=== PATIENT | male | born 1940 | race Caucasian/White ===

== ENCOUNTER 2018-02-13 12:46 | Day surgery (SDC) | payer MEDICARE, OTHER ==
[~2018-02-13] VITALS: Ht 175.3 cm; Wt 80.9 kg
[~2018-02-13 12:46] MED LIST: GABA300 PO; GUAI600T33 PO; HYDMOR2 PO; NORT25 PO; OXYC10ER PO; OXYC5 PO; POLY17UD PO; PSEU120ER PO
[2018-02-13] MEDS ORDERED: Melatonin1 MG/4 ML (13:45)
== END 2018-02-13 15:25 | disposition home or self-care (01) ==
LOC: ORSCSDS 12:46
PROVIDERS: Surgery
PROC: 0DJD8ZZ Inspection of Lower Intestinal Tract, Via Natural or Artificial Opening Endoscopic (ICD-10-PCS; principal; 2018-02-13 14:30)
DX: Z12.11 Encounter for screening for malignant neoplasm of colon (principal); K57.30 Diverticulosis of large intestine without perforation or abscess without bleeding; K64.8 Other hemorrhoids

== ENCOUNTER 2020-01-04 12:57 | Observation (INO) | payer MEDICARE, OTHER ==
[~2020-01-04] VITALS: Ht 175.3 cm; Wt 76.6 kg
[~2020-01-04 12:57] MED LIST changes: -Donnatal E16.2 MG/5 PO; -NITR.4SL SL; -Nortriptyline H50 MG PO; -OMEP20ER PO
[2020-01-04] MEDS ORDERED: Nortriptyline H50 MG PO (14:04)
[2020-01-04 14:16] LABS: Hematocrit 44.1 % (37.0-53.0); Hemoglobin 14.7 g/dL (13.5-17.5); Mean Corpuscular HGB 32.5 pg (26.0-34.0); Mean Corpuscular HGB Conc 33.3 g/dL (31.5-36.5); Mean Corpuscular Volume 97 fL (80-100); Mean Platelet Volume 9.8 fL (9.1-12.4); Platelet Count 178 K/mm3 (150-400); RDW Coefficient Variation 12.1 % (11.7-14.2); RDW Standard Deviation 43.8 fL (35.1-46.3); Red Blood Cell Count 4.53 M/mm3 (4.30-5.90); White Blood Cell Count 8.69 K/mm3 (4.00-11.30)
[2020-01-04 14:36] LABS: Alanine Aminotransfer (ALT/SGP 28 U/L (12-78); Albumin, Blood 3.7 g/dL (3.4-5.0); Albumin/Globulin Ratio 1.1 (0.8-1.8); Alk Phos 71 U/L (50-136); Anion Gap 9 mmol/L (6-16); Aspartate Aminotrans (AST/SGOT 32 U/L (12-37); Bilirubin, Total 0.7 mg/dL (0.1-1.0); Blood Urea Nitrogen 22 mg/dL (8-24); Bun/Creatinine Ratio 23.4 (12.0-20.0); CO2, Blood 22 mmol/L (21-32); Calcium, Blood 8.6 mg/dL (8.5-10.1); Chloride, Blood 107 mmol/L (98-108); Cholesterol 126 mg/dL (50-200); Creatinine, Blood 0.94 mg/dL (0.60-1.20); Globulin, Blood 3.5 g/dL (2.2-4.0); Glomerular Filtration Rate >60 (60-); Glucose, Blood 84 mg/dL (70-99); HDL Cholesterol 62 mg/dL (>39); LDL/HDL RATIO 0.9; Low Density Lipoprotein Chol 54 mg/dL (0-110); Magnesium, Blood 2.7 mg/dL (1.6-2.4); Potassium, Blood 4.6 mmol/L (3.5-5.5); Sodium, Blood 138 mmol/L (136-145); Total Protein, Blood 7.2 g/dL (6.4-8.2); Triglycerides 50 mg/dL (30-160); Troponin I <0.015 ng/mL (0.000-0.040); Very Low Density Lipoprot Chol 10 mg/dL (6-32)
--- NOTE | 2020-01-04 15:48 | NUR ---
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 BEDSIDE REPORT FROM LISANDRO GORDON. TR BAND TO RIGHT RADIAL ACCESS SITE c 8 ML OF AIR. APPROX 4 CM OF SWELLING NOTED PROXIMAL TO TR BAND, 2ND BAND PLACED c 10 ML OF AIR PLACED PROXIMAL TO FIRST BAND AND 2 ML OF AIR ADDED TO 1ST BAND BY ROENTGENOLOGIST. CAP REFILL <2 SEC, PT DENIES PAIN, NUMBNESS OR TINGLING. PT A&OX 4. ANSWERS QUESTIONS APPROPRIATELY. REPORTS "FULLNESS" IN THROAT, SAME STARTED YESTERDAY AFTERNOON. DENIES CHEST PAIN, SOB OR OTHER SYMPTOMS. LUNGS CLEAR. PT P/W/D. ABD ROUND, SOFT, NON TENDER. BT X 4. MAEW. ORIENTED TO ROOM. ABLE TO MAKE NEEDS KNOWN. VSS.
--- NOTE | 2020-01-04 17:00 | NUR ---
Echocardiogram completed.
--- NOTE | 2020-01-04 18:10 | NUR ---
SHIFT SUMMARY PT ARRIVED FROM [facility]OB[facility] MARKER AT 1450. RADIAL ACCESS, TWO TR BANDS IN PLACE. AIR REMOVED. BANDS LEFT IN PLACE. SWELLING MARKED c PEN. CT SCAN COMPLETE, ECHO COMPLETE. PT REPORTS CONTINUED PAIN TO EPIGASTRIC AREA, MEDICATED c TYLENOL. SO UPDATED. VSS. WILL CONTINUE TO MONITOR UNTIL REPORT TO ONCOMING NURSE.
--- NOTE | 2020-01-04 21:05 | NUR ---
01/03 @ 2100 PRESENTED PATIENT WITH ORDERED EVENING MEDICATIONS, PT. STATES HE NORMALLY TAKES 300 MG GABAPENTIN IN AM, 600 MG IN PM, DOES NOT TAKE 300 MG TID. SPOKE WITH CONOR TAYLOR, GAVE ORDER TO RESUME NORMAL HOME SCHEDULE AND DOSAGE. DECIDED TO PLACE A ONE TIME ORDER FOR 300 MG TONIGHT I HAVE ALREADY PULLED ONE PILL FOR PATIENT. PERTINENT LABS REVEIEWED. NO C/O PAIN. WILL CONTINUE TO MONITOR.
[2020-01-05 03:29] LABS: BASOPHILS ABSOLUTE AUTO 0.03 K/mm3 (0.00-0.23); BASOPHILS PERCENT AUTO 0 % (0-2); EOSINOPHILS ABSOLUTE AUTO 0.18 K/mm3 (0.00-0.68); EOSINOPHILS PERCENT AUTO 2 % (0-6); Hemoglobin 14.2 g/dL (13.5-17.5); IMMATURE GRAN ABSOLUTE AUTO 0.02 K/mm3 (0.00-0.10); IMMATURE GRAN PERCENT AUTO 0 % (0-1); LYMPHOCYTES ABSOLUTE AUTO 0.49 K/mm3 (0.84-5.20); LYMPHOCYTES PERCENT AUTO 6 % (21-46); MONOCYTES ABSOLUTE AUTO 0.85 K/mm3 (0.16-1.47); MONOCYTES PERCENT AUTO 11 % (4-13); Mean Corpuscular HGB 32.7 pg (26.0-34.0); Mean Corpuscular HGB Conc 33.8 g/dL (31.5-36.5); Mean Corpuscular Volume 97 fL (80-100); Mean Platelet Volume 9.6 fL (9.1-12.4); NEUTROPHILS ABSOLUTE AUTO 6.41 K/mm3 (1.96-9.15); NEUTROPHILS PERCENT AUTO 80 % (41-73); Platelet Count 158 K/mm3 (150-400); RDW Coefficient Variation 12.5 % (11.7-14.2); RDW Standard Deviation 44.6 fL (35.1-46.3); Red Blood Cell Count 4.34 M/mm3 (4.30-5.90); White Blood Cell Count 7.98 K/mm3 (4.00-11.30)
[2020-01-05 03:53] LABS: Anion Gap 6 mmol/L (6-16); Blood Urea Nitrogen 17 mg/dL (8-24); Bun/Creatinine Ratio 20.8 (12.0-20.0); CO2, Blood 24 mmol/L (21-32); CPK Creatine Kinase 59 U/L (39-308); Calcium, Blood 8.3 mg/dL (8.5-10.1); Chloride, Blood 108 mmol/L (98-108); Creatine Kinase MB 1.7 ng/mL (0.0-3.6); Creatine Kinase MB Index 2.9 (0.0-4.0); Creatinine, Blood 0.82 mg/dL (0.60-1.20); Glomerular Filtration Rate >60 (60-); Glucose, Blood 117 mg/dL (70-99); Potassium, Blood 4.4 mmol/L (3.5-5.5); Sodium, Blood 138 mmol/L (136-145); Troponin I <0.015 ng/mL (0.000-0.040)
--- NOTE | 2020-01-05 06:41 | NUR ---
SHIFT SUMMARY PATIENT SLEPT WELL THROUGH NIGHT. DID HAVE ONE EPISODE OF EPIGASTRIC/SUBSTERNAL PAIN, RATED 5/10, TREATED WITH TYLENOL AND MAALOX, SEE EMAR, WELL CONTROLLED. PATIENT SLEPT REST OF NIGHT AFTER RECEIVING MEDS, NO FURTHER C/O PAIN. STILL EXHIBITS ST ELEVATION IN LEADS ii, aVF, DEPRESSION IN V1. ASSESSMENT IS CHARTED. VSS. WILL CONTINUE TO MONITOR.
--- NOTE | 2020-01-05 09:35 | NUR ---
ASSUMED CARE OF PT AT 0700. REPORT FROM JONAH GORDON. PT RESTING IN BED. A&OX 4. DENIES CHEST PAIN OR SOB. PT STATES HE IS EAGER TO GO HOME. LUNGS CLEAR. VSS. ST ELEVATION NOTED ON MONITOR. PT STATES GI COCKTAIL LAST NOC HELPED c PAIN. RIGHT RADIAL ACCESS SITE c TEGADERM IN PLACE. CAP REFILL < 3 SEC, PT DENIES NUMBNESS OR TINGLING. ARM BOARD PLACED AT START OF SHIFT. WILL CONTINUE TO MONITOR.
[2020-01-05] MEDS ORDERED: NITR.4SL SL (11:35)
[2020-01-05] MEDS ORDERED: Donnatal E16.2 MG/5 PO (11:35)
[2020-01-05] MEDS ORDERED: OMEP20ER PO (11:36)
--- NOTE | 2020-01-05 13:15 | NUR ---
D/C INSTRUCTIONS PROVIDED. PT VERBALIZED UNDERSTANDING OF D/C INSTRUCTIONS, NEW RX'S AND FOLLOW UP APPTS. AMB OTD NAD. ALL BELONGINGS HOME c PT.
== END 2020-01-05 13:11 | disposition home or self-care (01) ==
LOC: ER 12:57 → ICUW 13:58 → ER 13:58 → ICUE 14:49 → ICUW 14:49 → ICUE 17:18 → ICUW 01-05 12:03 → ICUE 01-05 12:03 → ICUW 01-05 12:40
PROVIDERS: Emergency Medicine; ADMIT Internal Medicine Interventional Cardiology
PROC: B2151ZZ Fluoroscopy of Left Heart using Low Osmolar Contrast (ICD-10-PCS; principal; 2020-01-04)
PROC: 4A023N7 Measurement of Cardiac Sampling and Pressure, Left Heart, Percutaneous Approach (ICD-10-PCS; principal; 2020-01-04)
PROC: B2111ZZ Fluoroscopy of Multiple Coronary Arteries using Low Osmolar Contrast (ICD-10-PCS; principal; 2020-01-04)
DX: I21.19 ST elevation (STEMI) myocardial infarction involving other coronary artery of inferior wall (principal); R09.1 Pleurisy; I25.10 Atherosclerotic heart disease of native coronary artery without angina pectoris; I10 Essential (primary) hypertension; E78.5 Hyperlipidemia, unspecified; K27.9 Peptic ulcer, site unspecified, unspecified as acute or chronic, without hemorrhage or perforation; Z79.899 Other long term (current) drug therapy; Z88.8 Allergy status to other drugs, medicaments and biological substances
CPT/HCPCS: 36415; 71260; 76937; 80048; 80053; 80061; 82550; 82553; 83735; 84484; 85025; 85027; 85347; 86850; 86900; 86901; 93005; 93010; 93306; 93458; 96374; 99152; 99153; 99285-25; A9270; A9270-GY; C1769; C1887; C1894; J1644; J2250; J3010; J7030; Q9967

== ENCOUNTER → 2020-01-04 | Outpatient (CLI) | payer MEDICARE ==
[~2020-01-04] MED LIST changes: +Donnatal E16.2 MG/5 PO; +Melatonin1 MG/4 ML; +NITR.4SL SL; +Nortriptyline H50 MG PO; +OMEP20ER PO
[2020-01-04 11:52] LABS: BASOPHILS ABSOLUTE AUTO 0.03 K/mm3 (0.00-0.23); BASOPHILS PERCENT AUTO 0 % (0-2); EOSINOPHILS ABSOLUTE AUTO 0.03 K/mm3 (0.00-0.68); EOSINOPHILS PERCENT AUTO 0 % (0-6); Hematocrit 43.1 % (37.0-53.0); Hemoglobin 14.9 g/dL (13.5-17.5); IMMATURE GRAN ABSOLUTE AUTO 0.03 K/mm3 (0.00-0.10); IMMATURE GRAN PERCENT AUTO 0 % (0-1); LYMPHOCYTES ABSOLUTE AUTO 0.54 K/mm3 (0.84-5.20); LYMPHOCYTES PERCENT AUTO 6 % (21-46); MONOCYTES ABSOLUTE AUTO 1.11 K/mm3 (0.16-1.47); MONOCYTES PERCENT AUTO 12 % (4-13); Mean Corpuscular HGB Conc 34.6 g/dL (31.5-36.5); Mean Corpuscular Volume 96 fL (80-100); Mean Platelet Volume 9.6 fL (9.1-12.4); NEUTROPHILS PERCENT AUTO 81 % (41-73); Platelet Count 188 K/mm3 (150-400); RDW Coefficient Variation 12.4 % (11.7-14.2); RDW Standard Deviation 44.1 fL (35.1-46.3); Red Blood Cell Count 4.51 M/mm3 (4.30-5.90); White Blood Cell Count 9.14 K/mm3 (4.00-11.30)
[2020-01-04 12:21] LABS: Alanine Aminotransfer (ALT/SGP 26 U/L (12-78); Albumin, Blood 4.1 g/dL (3.4-5.0); Albumin/Globulin Ratio 1.2 (0.8-1.8); Alk Phos 80 U/L (40-126); Anion Gap 10 mmol/L (6-16); Aspartate Aminotrans (AST/SGOT 19 U/L (12-37); Bilirubin, Total 0.5 mg/dL (0.1-1.0); Blood Urea Nitrogen 22 mg/dL (8-24); Bun/Creatinine Ratio 18.6 (12.0-20.0); CO2, Blood 25 mmol/L (21-32); CPK Creatine Kinase 85 U/L (39-308); Calcium, Blood 8.8 mg/dL (8.5-10.1); Chloride, Blood 105 mmol/L (98-108); Creatinine, Blood 1.18 mg/dL (0.60-1.20); Globulin, Blood 3.3 g/dL (2.2-4.0); Glomerular Filtration Rate 60 (60-); Glucose, Blood 105 mg/dL (70-99); Potassium, Blood 4.3 mmol/L (3.5-5.5); Sodium, Blood 140 mmol/L (136-145); Thyroid Stimulating Hormone 1.956 uIU/mL (0.360-4.800); Total Protein, Blood 7.4 g/dL (6.4-8.2)
[2020-01-04 12:27] LABS: Troponin I <0.017 ng/mL (0.000-0.040)
== END | disposition home or self-care (01) ==
LOC: LAB SHORT 11:44 → LAB EV 11:44
PROVIDERS: Physician Assistant
DX: R07.81 Pleurodynia (principal); R53.83 Other fatigue
CPT/HCPCS: 80053; 82550; 83690; 84443; 84484; 85025; 85379

== ENCOUNTER → 2020-11-17 | Outpatient (CLI) | payer MEDICARE, OTHER ==
[~2020-11-17] MED LIST changes: +Donnatal E16.2 MG/5 PO; +NITR.4SL SL; +Nortriptyline H50 MG PO; +OMEP20ER PO
== END | disposition home or self-care (01) ==
LOC: LAB 09:09 → LAB SHORT 09:09
DX: R35.0 Frequency of micturition (principal)
CPT/HCPCS: 87077; 87086; 87186

== ENCOUNTER → 2021-03-31 | Outpatient (CLI) | payer MEDICARE, OTHER | END | disposition home or self-care (01) | LOC: LAB SHORT 19:06 → LAB EV 19:06 | DX: R31.9 Hematuria, unspecified (principal) | CPT/HCPCS: 87077; 87086; 87186 ==

== ENCOUNTER → 2021-06-12 | Outpatient (CLI) | payer MEDICARE, OTHER | END | disposition home or self-care (01) | LOC: LAB 17:32 → LAB SHORT 17:32 | DX: N39.0 Urinary tract infection, site not specified (principal) | CPT/HCPCS: 87077; 87086; 87186 ==